=== PATIENT | female | born 1945 | race Caucasian/White ===

== ENCOUNTER 2022-03-14 23:33 | Inpatient (IN) | payer OTHER, MEDICAID ==
[~2022-03-14] VITALS: Ht 152.4 cm; Wt 61.7 kg
[2022-03-14 23:33] VITALS: BP_SYST 129
[2022-03-15 00:20] LABS: BASOPHILS # (AUTO) 0.1 K/uL (0.0-0.2); EOSINOPHILS # (AUTO) 0.1 K/uL (0.0-0.4); LYMPHOCYTES # (AUTO) 2.6 K/uL (1.0-5.5); MONOCYTES # (AUTO) 1.3 K/uL (0.0-1.0); NEUTROPHILS # (AUTO) 5.4 K/uL (1.8-7.7); WHITE BLOOD COUNT (AUTO) 9.6 K/uL (4.8-10.8)
[2022-03-15 00:24] LABS: BASOPHILS % (AUTO) 0.7 % (0.0-2.0); HEMATOCRIT 31.2 % (36-48); HEMOGLOBIN 11.1 g/dL (12.0-16.0); LYMPHOCYTES % (AUTO) 27.3 % (20.5-51.5); MEAN CORPUSCULAR HEMOGLOBIN 31 pg (27-31); MEAN CORPUSCULAR HGB CONC 36 % (32-36); MEAN CORPUSCULAR VOLUME 88 fL (79.0-98.0); MONOCYTES % (AUTO) 14.1 % (1.7-9.3); NEUTROPHILS % (AUTO) 56.9 % (40.0-70.0); PLATELET COUNT (AUTO) 355 K/uL (130-430); RED BLOOD CELL COUNT(AUTO) 3.54 MIL/uL (4.2-6.2); RED CELL DISTRIBUTION WIDTH 13.1 % (9.0-15.0)
[2022-03-15] MEDS ORDERED: MORPHINE 2 MG/ML INJ. SYRINGE IVP ONE (00:30)
[2022-03-15 00:41] LABS: ANION GAP 3 (5-15); CALCIUM 7.6 mg/dL (8.4-11.0); CREATININE 0.48 mg/dL (0.55-1.30); GLUCOSE 116 mg/dL (70-99); POTASSIUM 3.9 mmol/L (3.5-5.1); UREA NITROGEN, BLOOD 17 mg/dL (8-21)
[2022-03-15 00:47] LABS: ALANINE AMINOTRANSFERASE 17 U/L (12-78); ALBUMIN 2.3 g/dL (3.4-4.8); ASPARTATE AMINOTRANSFERASE 15 U/L (10-37); TOTAL BILIRUBIN 0.1 mg/dL (0.0-1.0)
[2022-03-15 00:49] LABS: CHLORIDE 83 mmol/L (98-107)
[2022-03-15 00:52] LABS: SODIUM SERUM 114 mmol/L (136-145)
[2022-03-15] MEDS ORDERED: HALOPERIDOL LACTATE 5 MG/ML VIAL IM ONE (01:00)
[2022-03-15] MEDS ORDERED: LORazepam 2 MG/ML VIAL IVP ONE (01:00)
[2022-03-15 01:10] LABS: BILIRUBIN,URINE NEGATIVE (NEGATIVE); BLOOD, URINE 3+ (NEGATIVE); CLARITY/URINE CLOUDY (CLEAR); COLOR,URINE YELLOW (YELLOW); GLUCOSE,URINE NEGATIVE (NEGATIVE); KETONES,URINE NEGATIVE (NEGATIVE); LEUKOCYTE ESTERASE ,URINE 3+ (NEGATIVE); NITRITE, URINE NEGATIVE (NEGATIVE); PH,URINE 8.5 (5.0-8.0); PROTEIN URINE 2+ (NEGATIVE); UROBILINOGEN,URINE 0.2 (0.2-1.0)
[2022-03-15 01:30] LABS: BACTERIA,URINE MANY /HPF (None Seen); RBC,URINE >100 /HPF (0-3); URINE AMORPHOUS PHOSPHATES 3+ /HPF (None Seen); WBC,URINE >100 /HPF (0-3)
[2022-03-15 01:31] LABS: TRIPLE PHOSPHATE CRYSTAL,UR 0-10 /HPF (None Seen)
[2022-03-15] MEDS ORDERED: ALBUTEROL SULFATE 0.083% 2.5 MG/3 ML VIAL.NEB INH PRN (02:00)
[2022-03-15] MEDS: cefTRIAXone 1 GM IVPB PREMIX 50 ML IV SCH (02:21)
[2022-03-15] MEDS: NACL 0.9% 1,000 ML IV SCH ×2 (02:22→12:00)
[2022-03-15] MEDS ORDERED: MOM PO (03:16)
[2022-03-15] MEDS ORDERED: DOCU-144 PO (03:16)
[2022-03-15] MEDS ORDERED: VITD2000 PO (03:16)
[2022-03-15] MEDS ORDERED: LACT1TAB14 PO (03:16)
[2022-03-15] MEDS ORDERED: LIDOINT TP (03:16)
[2022-03-15] MEDS ORDERED: MULT-1089 PO (03:16)
[2022-03-15] MEDS ORDERED: ASPI-1155 PO (03:16)
[2022-03-15] MEDS ORDERED: DORZ10DR9 EACH EYE (03:16)
[2022-03-15] MEDS ORDERED: CALC1CAP19 PO (03:16)
[2022-03-15] MEDS ORDERED: PRED5DRO25 BOTH EYES (03:16)
[2022-03-15] MEDS ORDERED: PHEN200C3 PO (03:16)
[2022-03-15] MEDS ORDERED: ASCO500T20 PO (03:16)
[2022-03-15] MEDS ORDERED: COLL30OI2 TP (03:16)
[2022-03-15 03:50] VITALS: BP_SYST 102
[2022-03-15 05:33] VITALS: BP_SYST 115
[2022-03-15 06:12] LABS: BASOPHILS % (AUTO) 0.4 % (0.0-2.0); EOSINOPHILS # (AUTO) 0.2 K/uL (0.0-0.4); EOSINOPHILS % (AUTO) 1.7 % (0.0-4.0); HEMATOCRIT 30.2 % (36-48); HEMOGLOBIN 10.8 g/dL (12.0-16.0); LYMPHOCYTES # (AUTO) 2.9 K/uL (1.0-5.5); LYMPHOCYTES % (AUTO) 31.6 % (20.5-51.5); MEAN CORPUSCULAR HEMOGLOBIN 31 pg (27-31); MEAN CORPUSCULAR HGB CONC 36 % (32-36); MEAN CORPUSCULAR VOLUME 88 fL (79.0-98.0); MONOCYTES # (AUTO) 1.7 K/uL (0.0-1.0); MONOCYTES % (AUTO) 18.2 % (1.7-9.3); NEUTROPHILS # (AUTO) 4.4 K/uL (1.8-7.7); NEUTROPHILS % (AUTO) 48.1 % (40.0-70.0); PLATELET COUNT (AUTO) 341 K/uL (130-430); RED BLOOD CELL COUNT(AUTO) 3.43 MIL/uL (4.2-6.2); RED CELL DISTRIBUTION WIDTH 13.2 % (9.0-15.0); WHITE BLOOD COUNT (AUTO) 9.2 K/uL (4.8-10.8)
[2022-03-15 06:48] LABS: ALANINE AMINOTRANSFERASE 19 U/L (12-78); ALBUMIN 2.1 g/dL (3.4-4.8); ANION GAP 6 (5-15); ASPARTATE AMINOTRANSFERASE 17 U/L (10-37); CALCIUM 7.5 mg/dL (8.4-11.0); CREATININE 0.37 mg/dL (0.55-1.30); GLUCOSE 88 mg/dL (70-99); POTASSIUM 3.8 mmol/L (3.5-5.1); THYROID STIMULATING HORMONE 2.97 uIu/mL (0.36-3.74); TOTAL BILIRUBIN 0.1 mg/dL (0.0-1.0); UREA NITROGEN, BLOOD 15 mg/dL (8-21)
[2022-03-15 07:42] LABS: CHLORIDE 84 mmol/L (98-107); SODIUM SERUM 114 mmol/L (136-145)
[2022-03-15] MEDS ORDERED: PHENYTOIN 100 MG CAPSULE PO ONE (11:00)
[2022-03-15 12:50] VITALS: BP_SYST 100
[2022-03-15] MEDS: PHENYTOIN 100 MG CAPSULE PO SCH ×2 (15:29→20:50)
[2022-03-15 16:48] VITALS: BP_SYST 101
[2022-03-15 20:00] VITALS: BP_SYST 111
[2022-03-15] MEDS: ACETAMINOPHEN 325 MG TABLET PO PRN (20:51)
[2022-03-15] MEDS ORDERED: DIPHENHYDRAMINE INJ 50 MG/ML VIAL IVP ONE (23:00)
[2022-03-16] MEDS: NACL 0.9% 1,000 ML IV SCH ×2 (00:37→13:30)
[2022-03-16 01:58] VITALS: BP_SYST 129
[2022-03-16] MEDS ORDERED: cefTRIAXone 1 GM IVPB PREMIX 50 ML IV ONE (03:03)
[2022-03-16] MEDS: cefTRIAXone 1 GM IVPB PREMIX 50 ML IV SCH (03:04)
[2022-03-16 06:22] LABS: BASOPHILS % (AUTO) 0.6 % (0.0-2.0); EOSINOPHILS # (AUTO) 0.1 K/uL (0.0-0.4); EOSINOPHILS % (AUTO) 1.3 % (0.0-4.0); HEMOGLOBIN 11.1 g/dL (12.0-16.0); LYMPHOCYTES # (AUTO) 1.9 K/uL (1.0-5.5); LYMPHOCYTES % (AUTO) 27.6 % (20.5-51.5); MEAN CORPUSCULAR HEMOGLOBIN 31 pg (27-31); MEAN CORPUSCULAR HGB CONC 35 % (32-36); MEAN CORPUSCULAR VOLUME 89 fL (79.0-98.0); MONOCYTES # (AUTO) 1.2 K/uL (0.0-1.0); MONOCYTES % (AUTO) 17.4 % (1.7-9.3); NEUTROPHILS # (AUTO) 3.7 K/uL (1.8-7.7); NEUTROPHILS % (AUTO) 53.1 % (40.0-70.0); PLATELET COUNT (AUTO) 345 K/uL (130-430); RED BLOOD CELL COUNT(AUTO) 3.59 MIL/uL (4.2-6.2); RED CELL DISTRIBUTION WIDTH 13.3 % (9.0-15.0)
[2022-03-16 06:33] LABS: ALANINE AMINOTRANSFERASE 14 U/L (12-78); ALBUMIN 2.1 g/dL (3.4-4.8); ANION GAP 9 (5-15); ASPARTATE AMINOTRANSFERASE 14 U/L (10-37); CALCIUM 7.2 mg/dL (8.4-11.0); CHLORIDE 94 mmol/L (98-107); CREATININE 0.32 mg/dL (0.55-1.30); GLUCOSE 81 mg/dL (70-99); POTASSIUM 3.3 mmol/L (3.5-5.1); SODIUM SERUM 127 mmol/L (136-145); TOTAL BILIRUBIN 0.1 mg/dL (0.0-1.0); UREA NITROGEN, BLOOD 8 mg/dL (8-21)
[2022-03-16] MEDS ORDERED: POTASSIUM CHLORIDE 20 MEQ TAB.PRT.SR PO ONE (08:30)
[2022-03-16] MEDS: PHENYTOIN 100 MG CAPSULE PO SCH ×3 (10:01→20:53)
[2022-03-16 12:21] LABS: ANION GAP 9 (5-15); CALCIUM 7.1 mg/dL (8.4-11.0); CHLORIDE 94 mmol/L (98-107); CREATININE 0.27 mg/dL (0.55-1.30); GLUCOSE 91 mg/dL (70-99); POTASSIUM 3.2 mmol/L (3.5-5.1); SODIUM SERUM 125 mmol/L (136-145); UREA NITROGEN, BLOOD 7 mg/dL (8-21)
[2022-03-16 12:57] VITALS: BP_SYST 113
[2022-03-16 16:04] LABS: CHLORIDE,URINE RANDOM 32 mmol/L (55-125)
[2022-03-16 16:29] VITALS: BP_SYST 117
[2022-03-16 20:15] VITALS: BP_SYST 142
[2022-03-17 02:02] VITALS: BP_SYST 127
[2022-03-17] MEDS ORDERED: cefTRIAXone 1 GM IVPB PREMIX 50 ML IV ONE (02:55)
[2022-03-17] MEDS: cefTRIAXone 1 GM IVPB PREMIX 50 ML IV SCH (03:10)
[2022-03-17] MEDS: NACL 0.9% 1,000 ML IV SCH ×2 (06:04→18:30)
[2022-03-17 08:00] VITALS: BP_SYST 115
[2022-03-17] MEDS: PHENYTOIN 100 MG CAPSULE PO SCH ×3 (09:13→21:39)
[2022-03-17 09:17] LABS: ANION GAP 14 (5-15); CALCIUM 7.2 mg/dL (8.4-11.0); CHLORIDE 95 mmol/L (98-107); CREATININE 0.32 mg/dL (0.55-1.30); GLUCOSE 67 mg/dL (70-99); POTASSIUM 3.5 mmol/L (3.5-5.1); SODIUM SERUM 127 mmol/L (136-145); UREA NITROGEN, BLOOD 5 mg/dL (8-21)
[2022-03-17 09:23] LABS: ALANINE AMINOTRANSFERASE 15 U/L (12-78); ALBUMIN 2.2 g/dL (3.4-4.8); ASPARTATE AMINOTRANSFERASE 13 U/L (10-37); TOTAL BILIRUBIN 0.2 mg/dL (0.0-1.0)
[2022-03-17 16:00] VITALS: BP_SYST 130
[2022-03-17 20:00] VITALS: BP_SYST 106
[2022-03-17] MEDS: POLYETHYLENE GLYCOL 3350, 17 GM/ POWD.PACK PO SCH (23:36)
[2022-03-18] VITALS: BP_SYST 131
[2022-03-18] MEDS ORDERED: cefTRIAXone 1 GM IVPB PREMIX 50 ML IV ONE (02:52)
[2022-03-18] MEDS: cefTRIAXone 1 GM IVPB PREMIX 50 ML IV SCH (03:01)
[2022-03-18 08:58] VITALS: BP_SYST 131
[2022-03-18] MEDS ORDERED: CITRIC ACID/SODIUM CITRATE 30 ML UDC PO SCH (09:00)
[2022-03-18] MEDS: POLYETHYLENE GLYCOL 3350, 17 GM/ POWD.PACK PO SCH (09:00)
[2022-03-18 09:22] LABS: ALANINE AMINOTRANSFERASE 17 U/L (12-78); ANION GAP 5 (5-15); ASPARTATE AMINOTRANSFERASE 16 U/L (10-37); CALCIUM 7.1 mg/dL (8.4-11.0); CHLORIDE 97 mmol/L (98-107); CREATININE 0.36 mg/dL (0.55-1.30); GLUCOSE 144 mg/dL (70-99); POTASSIUM 3.1 mmol/L (3.5-5.1); SODIUM SERUM 127 mmol/L (136-145); TOTAL BILIRUBIN 0.1 mg/dL (0.0-1.0); UREA NITROGEN, BLOOD 3 mg/dL (8-21)
[2022-03-18 09:54] LABS: BASOPHILS # (AUTO) 0.1 K/uL (0.0-0.2); BASOPHILS % (AUTO) 0.9 % (0.0-2.0); EOSINOPHILS % (AUTO) 0.2 % (0.0-4.0); HEMATOCRIT 31.8 % (36-48); LYMPHOCYTES # (AUTO) 1.4 K/uL (1.0-5.5); LYMPHOCYTES % (AUTO) 13.6 % (20.5-51.5); MEAN CORPUSCULAR HEMOGLOBIN 31 pg (27-31); MEAN CORPUSCULAR HGB CONC 35 % (32-36); MEAN CORPUSCULAR VOLUME 89 fL (79.0-98.0); MONOCYTES # (AUTO) 1.5 K/uL (0.0-1.0); MONOCYTES % (AUTO) 15.2 % (1.7-9.3); NEUTROPHILS # (AUTO) 7.1 K/uL (1.8-7.7); NEUTROPHILS % (AUTO) 70.1 % (40.0-70.0); PLATELET COUNT (AUTO) 353 K/uL (130-430); WHITE BLOOD COUNT (AUTO) 10.2 K/uL (4.8-10.8)
[2022-03-18] MEDS: PHENYTOIN 100 MG CAPSULE PO SCH ×2 (09:59→17:47)
[2022-03-18] MEDS: ACETAMINOPHEN 325 MG TABLET PO PRN (10:00)
[2022-03-18] MEDS: NACL 0.9% 1,000 ML IV SCH (10:09)
[2022-03-18 10:13] LABS: ANION GAP 6 (5-15); CALCIUM 7.3 mg/dL (8.4-11.0); CHLORIDE 97 mmol/L (98-107); CREATININE 0.32 mg/dL (0.55-1.30); GLUCOSE 147 mg/dL (70-99); POTASSIUM 3.1 mmol/L (3.5-5.1); SODIUM SERUM 128 mmol/L (136-145); UREA NITROGEN, BLOOD 3 mg/dL (8-21)
[2022-03-18 11:31] VITALS: BP_SYST 129
[2022-03-18 16:01] VITALS: BP_SYST 140
[2022-03-18] MEDS ORDERED: PIPERACILLIN/TAZO 3.375/DEX-IS 50 ML IV SCH (18:00)
[2022-03-18 20:04] VITALS: BP_SYST 129
[2022-03-19 12:22] LABS: OSMOLALITY,URINE 155 mOsm/L (50-1200)
== END 2022-03-18 21:00 | DRG 640 ==
LOC: SED 23:33 → STU 03-15 01:46
PROVIDERS: ADMIT Internal Medicine Hospice and Palliative Medicine; ATTEND Internal Medicine Hospice and Palliative Medicine
DX: E87.1 Hypo-osmolality and hyponatremia (principal); R53.2 Functional quadriplegia; N39.0 Urinary tract infection, site not specified; E86.1 Hypovolemia; F03.90 Unspecified dementia, unspecified severity, without behavioral disturbance, psychotic disturbance, mood disturbance, and anxiety; I10 Essential (primary) hypertension; Z20.822 Contact with and (suspected) exposure to COVID-19; G40.909 Epilepsy, unspecified, not intractable, without status epilepticus; Z88.8 Allergy status to other drugs, medicaments and biological substances; Z86.73 Personal history of transient ischemic attack (TIA), and cerebral infarction without residual deficits; Z79.899 Other long term (current) drug therapy; Z79.82 Long term (current) use of aspirin
CPT/HCPCS: 36415; 71045; 80048; 80053; 81000; 82435; 82570; 83735; 83930; 83935; 84443; 85025; 87086; 93005; 96374; 96375; 99291; 99292; G0378; J0696; J1200; J2060; J2270; J2543